=== PATIENT | female | born 1950 | race Caucasian/White ===

== ENCOUNTER 2016-07-18 17:31 | Emergency (ER) | payer OTHER, MEDICARE ==
[~2016-07-18] VITALS: Ht 167.6 cm; Wt 59.0 kg
--- NOTE | 2016-07-18 17:51 | ED HEAD/FACIAL INJ COMPLAINT ---
History of Present Illness General Chief Complaint: General Adult Stated Complaint: NOSE INJURY Source: patient, family, old records Exam Limitations: no limitations Vital Signs & Intake/Output Vital Signs & Intake/Output Vital Signs Date Time Temp Pulse Resp B/P B/P Pulse O2 O2 Flow FiO2 Mean Ox Delivery Rate 07/18 1741 98.2 80 18 155/95 97 Room Air Allergies Coded Allergies: No Known Allergies (07/18/16) Reconcile Medications Calcium Carbonate/Vitamin D3 (Calcium 500 + D Tablet) (Unknown Strength) TABLET (Unknown Dose) PO DAILY SUPPLEMENT (Reported) Multivitamin (Multi-Day Vitamins) 1 EACH TABLET 1 TAB PO DAILY SUPPLEMENT ( Reported) Triage Note: PT TO TRIAGE WITH C/O NOSE SWELLING AND PAIN S/P 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 SMALL LAC TO TOP OF NOSE NOTED, BLEEDING CONTROLLED. LAST TETANUS VACCINATION 5-6 YEARS AGO. VSS. Triage Nurses Notes Reviewed? yes Onset: Abrupt Severity: mild Severity Numbers: 3 Location: frontal Method of Injury: direct blow Loss of Consciousness: no loss of consciousness Associated Symptoms: DENIES HPI: 65-year-old female with no medical history presents to ER for evaluation status post accidentally walking into a closed glass door in the dark. She states the glass did break she is not complaining of mild aching nonradiating pain over her nose. She states she had a left-sided epistaxis has since resolved she's on any blood thinners. There is no fall to the ground no head strike no loss of consciousness. She denies any vision changes other facial pain and jaw pain or dental trauma no neck back arm or leg injury. There is no prodromal dizziness lightheadedness. She is of the on her tetanus she is not taken anything for her symptoms. (NASIR AGUILAR) Past History Travel History Traveled to [place] past 21 day No Medical History Any Pertinent Medical History? none Surgical History Surgical History: none Psychosocial History What is your primary language Georgian Tobacco Use: Never used Family History Hx Contributory? No (NASIR AGUILAR) Review of Systems Review of Systems Constitutional: Reports: see HPI. All Other Systems: Reviewed and Negative Comments Review of systems: See HPI, All other systems negative. Constitutional, no chills no fever, no malaise HEENT: No visual changes no sore throat no congestion Cardiovascular: No chest pain , no palpitation Skin: no rashes, no change in skin Respiratory: No dyspnea no cough GI: No nausea no vomiting, Muscle skeletal: No joint pain, no joint swelling, no back pain, no neck pain, Neurologic: no confusion, no headache Psych: No stress Heme/endocrine: No bruising Immunology: No lymphadenopathy (NASIR AGUILAR) Physical Exam Physical Exam General Appearance: well developed/nourished, no apparent distress, alert Cranial Nerves: normal hearing, normal speech, PERRL Comments: Well-developed well-nourished patient in no apparent distress. Head/Face: no maxillary/frontal sinus tenderness, no facial swelling, face is otherwise atraumatic Eyes: PERRL, EOMI, no conjunctival injection. No nystagmus Ear:External auditory canals clear, no erythema, no FB. Nose: atraumatic.superficial abrasion noted to the nasal bridge no active bleeding no ecchymosis mild swelling, Normal inspection: No bleeding, no septal hematoma Throat: Moist mucous membranes.Pharynx normal. No pharyngeal erythema/exudate seen. No stridor/drooling or assymetry. No swelling or edema. Neck: Supple, FROM Back: FROM Cardiovascular: Regular rate and rhythms no murmurs Respiratory: No respiratory distress. Patient speaking in full complete sentences. Breath sounds clear to auscultation bilaterally: NO W/R/R Extremities: full range of motion Neuro: awake, alert, and oriented to person, place and time. There were no obvious focal neurologic abnormalities. Skin: Warm & dry;No appreciable rash on exposed skin Psych: Mood affect normal, normal memory normal judgment. (NASIR AGUILAR) Progress Differential Diagnosis: facial fracture, globe injury, ICH, orbit fracture, skull fracture Plan of Care: Orders Procedure Date/time Status XRY-NASAL BONES 07/19 1807 Active Patient medicated iw ibuprofen I discussed with the patient at length all of their results. I had an extensive conversation regarding need for close follow up with their primary care physician/ent this week as well as return precautions. I answered all of their questions, they feel comfortable with the plan and follow-up care. (NASIR AGUILAR) Diagnostic Imaging: Viewed by Me: Radiology Read. Discussed w/RAD: Radiology Read. Radiology Impression: PATIENT: LAURA MCCORMICK PRESENT AGE: 65 PATIENT ACCOUNT NO: [id number] : 48 LOCATION: [facility] ORDERING PHYSICIAN: NASIR RODAS SERVICE DATE: 07/18/16-1807 EXAM TYPE: RAD - XRY- NASAL BONES EXAMINATION: XR NASAL BONES CLINICAL INFORMATION: Nose pain and swelling. COMPARISON: None. TECHNIQUE: 3 views of the nasal bones were obtained. FINDINGS: 3 views of the bilateral nasal bones demonstrate acute minimally displaced fractures (\R\0.14 mm of displacement) involving the bilateral nasal bones. There is moderate overlying soft tissue swelling. The nasal septum appears to be midline. The orbital roofs and orbital floors are intact. The imaged paranasal sinuses and mastoid air cells are well aerated. IMPRESSION: Minimally displaced bilateral nasal bone fractures, as described above. Moderate overlying soft tissue swelling. 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 < Electronically signed in Other Vendor System> SIGNED BY: DONNA MIRZA MD 07/18/161905 (NASIR AGUILAR) Departure Departure Time of Disposition: 1852 Disposition: HOME OR SELF CARE Condition: Stable Clinical Impression Primary Impression: Nose fracture Secondary Impressions: Skin abrasion Referrals: CARMELINA WHIPPLE,LAURA RODAS,MARIELLE Hilton Additional Instructions: Rest ice interchange Tylenol Motrin as needed for pain follow up with your primary care physician/ Ear nose and throat hysician dr goldberg this week with any concerns. return to ER with any concerns anytime sooner Departure Forms: Customer Survey General Discharge Information (NASIR AGUILAR) PA/[employer] Co-Sign Statement Statement: ED Attending supervision documentation- [x] I saw and evaluated the patient. I have also reviewed all the pertinent lab results and diagnostic results. I agree with the findings and the plan of care as documented in the PA's/[employer]'s documentation. [] I have reviewed the ED Record and agree with the PA's/[employer]'s documentation. [] Additions or exceptions (if any) to the PAs/[employer]'s note and plan are summarized below: [] (HARLEY WHIPPLE,SEBLE Campos)
[2016-07-18] MEDS ORDERED: MULTI-DAY VITA1 EACH PO (17:57)
[2016-07-18] MEDS ORDERED: CALCIUM 500 +1 EAC5 PO (17:58)
[2016-07-18 19:01] VITALS: BP 142/88
--- NOTE | 2016-07-18 19:06 | RADIOLOGY REPORT ---
EXAMINATION: XR NASAL BONES CLINICAL INFORMATION: Nose pain and swelling. COMPARISON: None. TECHNIQUE: 3 views of the nasal bones were obtained. FINDINGS: 3 views of the bilateral nasal bones demonstrate acute minimally displaced fractures (\R\0.14 mm of displacement) involving the bilateral nasal bones. There is moderate overlying soft tissue swelling. The nasal septum appears to be midline. The orbital roofs and orbital floors are intact. The imaged paranasal sinuses and mastoid air cells are well aerated. IMPRESSION: Minimally displaced bilateral nasal bone fractures, as described above. Moderate overlying soft tissue swelling.
== END 2016-07-18 19:10 ==
LOC: ERH 17:31
DX: S02.2XXA Fracture of nasal bones, initial encounter for closed fracture (principal); S00.31XA Abrasion of nose, initial encounter; W22.8XXA Striking against or struck by other objects, initial encounter; Y92.9 Unspecified place or not applicable; Y93.9 Activity, unspecified
CPT/HCPCS: 70160